=== PATIENT | female | born 1990 | race Caucasian/White ===

== ENCOUNTER 2017-09-15 16:16 | Emergency (ER) | END 2017-09-15 17:06 | disposition home or self-care (01) ==

== ENCOUNTER 2018-06-08 21:22 | Emergency (ER) | payer MEDICAID ==
[~2018-06-08] VITALS: Ht 157.5 cm; Wt 49.5 kg
[~2018-06-08 21:22] MED LIST: AZIT250T PO; FLUT9.9S NASAL
[2018-06-08 21:37] VITALS: BP 100/58; PULSE 70; RESP 17; Ht 157.5 cm; Wt 49.5 kg
--- NOTE | 2018-06-08 23:06 | ERD ---
ER Documentation Chief Complaint Chief Complaint STATES COUGHED UP BLOOD X1 TIME ONE WEEK AGO HPI 28-year-old female presents here to emergency department for an episode of coughing up blood one time 1 week ago, has not been coughing anymore, but got worried about it today, denies any new symptoms denies any fever or chills, denies any shortness of breath or wheezing. Patient denies any recent travel. Patient denies any night sweats or fevers, denies any loss of weight. ROS All systems reviewed and are negative except as per history of present illness. Medications Home Meds Active Scripts Fluticasone Propionate (Flonase Allergy Relief) 9.9 Ml [place].susp, 1 SPRAY NASAL DAILY for 10 Days, #1 BOTTLE TO EACH NOSTRIL Prov:HAKAN GARRIDO MD 09/15/17 Azithromycin* (Zithromax*) 250 Mg Tablet, 250 MG PO .ZPACK DIRECTED, #6 TAB TAKE 500 MG (2 TABS) THE FIRST DAY THEN 250 MG (1 TAB) DAYS 2-5 Prov:HAKAN GARRIDO MD 09/15/17 Allergies Allergies: Coded Allergies: No Known Allergy (Unverified , 06/08/18) PMhx/Soc Medical and Surgical Hx: pt denies Medical Hx History of Surgery: Yes (C/S) Anesthesia Reaction: No Hx Neurological Disorder: No Hx Respiratory Disorders: No Hx Cardiac Disorders: No Hx Psychiatric Problems: No Hx Miscellaneous Medical Probl: No Hx Alcohol Use: No Hx Substance Use: No Hx Tobacco Use: No Smoking Status: Never smoker FmHx Family History: No diabetes, No coronary disease, No other Physical Exam Vitals Vital Signs Date Temp Pulse Resp B/P (MAP) Pulse Ox O2 O2 Flow FiO2 Time Delivery Rate 06/08/18 99.4 70 17 100/58 98 21:37 (72) Physical Exam GENERAL: The patient is well developed and appropriate for usual state of health, in no apparent distress. CHEST: Clear to auscultation bilaterally. There are no rales, wheezes or rhonchi. HEART: Regular rate and rhythm. No murmurs, clicks, rubs or gallops. No S3 or S4. ABDOMEN: Soft, nontender and nondistended. Good bowel sounds. No rebound or guarding. No gross peritonitis. No gross organomegaly or masses. No Mao sign or McBurney point tenderness. BACK: No midline or flank tenderness. EXTREMITIES: Equal pulses bilaterally. There is no peripheral clubbing, cyanosis or edema. No focal swelling or erythema. Full range of motion. Grossly neurovascularly intact. NEURO: Alert and oriented. Cranial nerves 2-12 intact. Motor strength in all 4 extremities with 5/5 strength. Sensation grossly intact. Normal speech and gait. SKIN: There is no apparent rash or petechia. The skin is warm and dry. HEMATOLOGIC AND LYMPHATIC: There is no evidence of excessive bruising or lymphedema. No gross cervical, axillary, or inguinal lymphadenopathy. Results 24 hrs PROCEDURE: XR Chest. CLINICAL INDICATION: Cough. TECHNIQUE: Single frontal chest x-ray. COMPARISON: 05/12/2013 FINDINGS: The cardiomediastinal silhouette is unremarkable. There is residual bilateral apical parenchymal interstitial nodular changes suggestive of scarring.. No definite focal pneumonia is identified.. There is no pleural effusion. There is no pneumothorax. The osseous structures are unremarkable. IMPRESSION: Bilateral apical parenchymal changes likely representing scarring, possibly from granulomatous disease. No definite acute infiltrate. RPTAT: [facility] .Sree Moy MD, Date Time Electronically viewed and signed by .Sree Moy MD, on 06/09/2018 00:23 .K/ CC: MICK GAN TELEX OPERATOR [id number] Procedures/MDM Medical Decision Making: Patient symptoms are most likely consistent with acute bronchitis, which viral in origin. There is low suspicion for Pneumonia at this time since patients lungs sounds are clear, patient O2 saturation is normal and patient doesnt show any respiratory distress. Patients chest xray doesnt show infiltrates or any other cardiopulmonary emergencies at this time, results of x-ray was discussed with my attending, Dr. Travis who agrees outpatient management. There is low suspicion for other cardiopulmonary emergencies at this time such as CHF, Pulmonary Embolism, Pneumothorax, Aortic Aneurysm or any other cardiopulmonary emergencies at this time. There is low suspicion for sepsis. Patient appears well and is hemodynamically stable. Fever is controlled with medicines. Disposition: Home. Condition: Stable Prescriptions: Guaifenesin DM Zyrtec ibuprofen, Tylenol. Instructions: Patient is advised to take medications as prescribed. Patient is advised to rest. Patient advised to increase fluid intake, do humidifier at home and if possible, do salt water gargles. Patient is advised that if symptoms are worse, shortness of breath, uncontrolled fever, stridor, vomiting, worst signs and symptoms to return to emergency department immediately. Otherwise, patient is advised to follow up with primary doctor in 5-7 days. Disclaimer: Inadvertent spelling and grammatical errors are likely due to EHR/dictation software use and do not reflect on the overall quality of patient care. Also, please note that the electronic time recorded on this note does not necessarily reflect the actual time of the patient encounter. Departure Diagnosis: Primary Impression: Acute bronchitis Bronchitis organism: unspecified organism Qualified Codes: J20.9 - Acute bronchitis, unspecified Condition: Stable Patient Instructions: Acute Bronchitis Additional Instructions: : Patient is advised to take medications as prescribed. Patient is advised to rest. Patient advised to increase fluid intake, do humidifier at home and if po ssible, do salt water gargles. Patient is advised that if symptoms are worse, shortness of breath, uncontrolled fever, stridor, vomiting, worst signs and symptoms to return to emergency department immediately. Otherwise, patient is advised to follow up with primary doctor in 5-7 days. MICK GAN NP Jun 08, 2018 23:06
[2018-06-09] MEDS ORDERED: CETI10CA PO (01:23)
[2018-06-09] MEDS ORDERED: IBUP-1561 PO (01:23)
[2018-06-09] MEDS ORDERED: GUAI120S26 PO (01:23)
== END 2018-06-09 01:27 | disposition home or self-care (01) ==
LOC: FTE 21:22
DX: J20.9 Acute bronchitis, unspecified (principal)
CPT/HCPCS: 71045; Z7502